=== PATIENT | female | born 1980 | race Caucasian/White ===

== ENCOUNTER → 2024-12-19 10:43 | Outpatient (REF) | payer BC, SELFPAY | LOC: WDC 10:43 | PROVIDERS: ATTENDING PHYSICIAN Obstetrics & Gynecology Gynecology; FAMILY PHYSICIAN Internal Medicine | DX: Z12.31 Encounter for screening mammogram for malignant neoplasm of breast (principal) | CPT/HCPCS: 77063; 77067 ==